=== PATIENT | female | born 1995 | race American Indian/Alaskan Native ===

== ENCOUNTER 2021-05-25 15:18 | Outpatient (CLI) | payer OTHER ==
[2021-05-25 16:29] LABS: Bilirubin,Urine NEG (Negative); Blood,Urine NEG (Negative); Color,Urine Yellow (Yellow); Mucus,Urine FEW /HPF; Urobilinogen,Urine < 2.0 mg/dL (<2.0)
[2021-05-25] MEDS ORDERED: LACTATED RINGERS 1,000 ML IV ONE (16:30)
[2021-05-25 16:37] LABS: Amphetamine Screen,Urine Negative; Benzodiazepines Screen,Urine Negative; Cocaine Screen,Urine Negative; Methadone Screen,Urine Negative; Opiate Screen,Urine Negative
[2021-05-25 16:49] LABS: Cannabinoid Screen,Urine Positive
[2021-05-25 17:00] VITALS: BP 104/59
--- NOTE | 2021-05-25 18:36 | Event Note ---
Date: 05/25/21 Pt reports care with Dr[address] Spencer and plans on delivery @ [facility]. pt states she came to [facility] because she was having abdominal pain that has since subsided. u/s showed no evidence of abruption. BPP 8/8, CL 2.2 (pt reports Dr. Spencer is watching her for shortened cervix.) No ctx noted on toco or palpation. Pt reports door was opened into her abdomen on the right side. She reports + FM. No Rhogam needed. Pt to be d/c'd home after completion of 4hr monitoring.
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
== END 2021-05-25 20:20 | disposition home or self-care (01) ==
LOC: TRG 15:18
PROVIDERS: ATTEND Obstetrics & Gynecology
DX: O26.892 Other specified pregnancy related conditions, second trimester (principal); R10.9 Unspecified abdominal pain; Z3A.27 27 weeks gestation of pregnancy; W20.8XXA Other cause of strike by thrown, projected or falling object, initial encounter; Y93.89 Activity, other specified; Y92.89 Other specified places as the place of occurrence of the external cause; Y99.8 Other external cause status
CPT/HCPCS: 59025; 76815; 76819; 80307; 81001; 86850; 86900; 86901; 96360; 96361; J7120